=== PATIENT | female | born 1975 | race Caucasian/White ===

== ENCOUNTER 2016-12-21 18:04 | Emergency (ER) | payer OTHER ==
[2016-12-21 19:20] VITALS: BP 160/91
== END 2016-12-21 19:20 | disposition home or self-care (01) ==
LOC: ED 18:04
DX: S91.001A Unspecified open wound, right ankle, initial encounter (principal); V98.8XXA Other specified transport accidents, initial encounter; Y93.89 Activity, other specified; Y92.89 Other specified places as the place of occurrence of the external cause; Y99.8 Other external cause status
CPT/HCPCS: 90715

== ENCOUNTER 2016-12-24 09:50 | Emergency (ER) | payer OTHER ==
[~2016-12-24] VITALS: Ht 160 cm; Wt 63.5 kg
[2016-12-24 10:05] VITALS: BP 128/91
== END 2016-12-24 11:33 | disposition home or self-care (01) ==
LOC: ED 09:50
DX: S91.311D Laceration without foreign body, right foot, subsequent encounter (principal); R03.0 Elevated blood-pressure reading, without diagnosis of hypertension; X58.XXXD Exposure to other specified factors, subsequent encounter; Y99.8 Other external cause status; Y92.89 Other specified places as the place of occurrence of the external cause